=== PATIENT | female | born 1975 | race Caucasian/White ===

== ENCOUNTER 2016-11-28 12:48 | Emergency (ER) | payer BC ==
[~2016-11-28] VITALS: Ht 160 cm; Wt 63.5 kg
[2016-11-28 13:53] LABS: POTASSIUM ISTAT 2.9 mmol/L (3.5-5.0)
[2016-11-28 13:59] LABS: BASO # 0.1 x10^3/uL (0.0-0.2); BASO % 1 % (0-3); EOS % 1 % (0-3); HEMOGLOBIN 17.3 g/dL (12.0-15.5); LYMPH # 2.5 x10^3/uL (1.0-4.8); LYMPH % 34 % (24-48); MEAN CORPUSCULAR HEMOGLOBIN 32 pg (25-35); MEAN CORPUSCULAR HGB CONC 35 g/dL (31-37); MEAN CORPUSCULAR VOLUME 93 fL (79-100); MONO % 10 % (0-9); NEUT % 55 % (31-73); PLATELET COUNT 249 x10^3/uL (140-400); RED CELL DISTRIBUTION WIDTH 13.4 % (11.5-14.5); WHITE BLOOD COUNT 7.4 x10^3/uL (4.0-11.0)
[2016-11-28] MEDS ORDERED: PANTOPRAZOLE IV PUSH 40 MG VIAL. IVP ONE (14:00)
[2016-11-28] MEDS ORDERED: KETOROLAC TROMETHAMINE 30 MG/ML INJ. IV ONE (14:00)
[2016-11-28] MEDS ORDERED: ONDANSETRON PF 4 MG/2 ML VIAL. IV ONE (14:00)
[2016-11-28] MEDS ORDERED: fentaNYL PF VIAL 100 MCG/2 ML VIAL IV ONE (14:00)
[2016-11-28] MEDS ORDERED: IV NORMAL SALINE 1000ML BAG 1,000 ML IV ONE ×2 (14:00)
[2016-11-28 14:06] LABS: CALCIUM 9.2 mg/dL (8.5-10.1); CREATININE 0.8 mg/dL (0.6-1.0); GFR 79.9; POTASSIUM 3.1 mmol/L (3.5-5.1)
[2016-11-28 14:12] LABS: ALBUMIN 3.9 g/dL (3.4-5.0); TOTAL BILIRUBIN 0.5 mg/dL (0.2-1.0); TOTAL PROTEIN 7.8 g/dL (6.4-8.2)
[2016-11-28] MEDS ORDERED: POTASSIUM CHLORIDE 20 MEQ TABLET.ER. PO ONE (14:45)
[2016-11-28] MEDS ORDERED: ONDA4TAB10 SL (14:56)
--- NOTE | 2016-11-28 14:57 | PHYS DOC ---
Past Medical History Past Medical History: No Pertinent History Past Surgical History: Tubal ligation Alcohol Use: Rarely Drug Use: None Adult General Chief Complaint Chief Complaint: NAUSEA/VOMITING/DIARRHA HPI HPI Patient is a 41 year old [female presenting to the emergency department for evaluation of nausea vomiting diarrhea that started 2 days ago and has persisted. Emesis is nonbloody nonbilious as well as diarrhea. Both have slowed down and she has not been able to keep anything down for the past 2 days and does not have anything in her GI tract. She had some crampy abdominal pain yesterday however no pain currently. She had bilateral tubal ligation. Review of Systems Review of Systems Constitutional: Denies fever or chills [] Eyes: Denies change in visual acuity, redness, or eye pain [] HENT: Denies nasal congestion or sore throat [] Respiratory: Denies cough or shortness of breath [] Cardiovascular: No CP GI: + abdominal pain, nausea, vomiting, diarrhea [] : Denies dysuria or hematuria [] Musculoskeletal: Denies back pain or joint pain [] Integument: Denies rash or skin lesions [] Neurologic: Denies headache, focal weakness or sensory changes [] Current Medications Current Medications Current Medications Medications (Trade) Dose Ordered Sig/Jorge A Start Time Stop Time Status Last Admin Dose Admin Fentanyl Citrate 75 mcg 75 mcg 1X ONCE 11/28/16 14:00 11/28/16 14:01 DC 11/28/16 14:09 75 MCG Ketorolac Tromethamine (Toradol) 30 mg 1X ONCE 11/28/16 14:00 11/28/16 14:01 DC 11/28/16 14:10 30 MG Ondansetron HCl (Zofran) 8 mg 1X ONCE 11/28/16 14:00 11/28/16 14:01 DC 11/28/16 14:09 8 MG Pantoprazole Sodium (Protonix Vial) 40 mg 1X ONCE 11/28/16 14:00 11/28/16 14:01 DC 11/28/16 14:08 40 MG Potassium Chloride (Klor-Con) 40 meq 1X ONCE 11/28/16 14:45 11/28/16 14:46 DC Sodium Chloride (Iv Sodium Chloride 0.9% 1000ml Bag) 1,000 ml @ 1,000 mls/hr 1X ONCE 11/28/16 14:00 11/28/16 14:59 Allergies Allergies Allergies Coded Allergies Type Severity Reaction Last Updated Verified sulfamethoxazole Allergy Intermediate 11/28/16 No trimethoprim Allergy Intermediate 11/28/16 No Physical Exam Physical Exam Constitutional: Well developed, well nourished, no acute distress, non-toxic appearance. [] HENT: Normocephalic, atraumatic, bilateral external ears normal, oropharynx moist, no oral exudates, nose normal. [] Eyes: PERRLA, EOMI, conjunctiva normal, no discharge. [] Neck: Normal range of motion, no tenderness, supple, no stridor. [] Cardiovascular:Heart rate regular rhythm, no murmur [] Lungs & Thorax: Bilateral breath sounds clear to auscultation [] Abdomen: Bowel sounds normal, soft, no tenderness, no masses, no pulsatile masses. [] Skin: Warm, dry, no erythema, no rash. [] Back: No tenderness, no CVA tenderness. [] Extremities: No tenderness, no cyanosis, no clubbing, ROM intact, no edema. [] Neurologic: Alert and oriented X 3, normal motor function, normal sensory function, no focal deficits noted. [] Current Patient Data Vital Signs Vital Signs Date Time Temp Pulse Resp B/P Pulse Ox O2 Delivery O2 Flow Rate FiO2 11/28/16 13:07 98.1 96 20 127/50 97 Room Air 98.1 Lab Values Laboratory Tests Test 11/28/16 12:55 11/28/16 13:45 11/28/16 13:50 POC Urine HCG, Qualitative Hcg negative (Negative) White Blood Count 7.4x10^3/uL (4.0-11.0) Red Blood Count 5.40x10^6/uL (3.50-5.40) Hemoglobin 17.3g/dL (12.0-15.5) H Hematocrit 50.0% (36.0-47.0) H Mean Corpuscular Volume 93fL (79-100) Mean Corpuscular Hemoglobin 32pg (25-35) Mean Corpuscular Hemoglobin Concent 35g/dL (31-37) Red Cell Distribution Width 13.4% (11.5-14.5) Platelet Count 249x10^3/uL (140-400) Neutrophils (%) (Auto) 55% (31-73) Lymphocytes (%) (Auto) 34% (24-48) Monocytes (%) (Auto) 10% (0-9) H Eosinophils (%) (Auto) 1% (0-3) Basophils (%) (Auto) 1% (0-3) Neutrophils # (Auto) 4.0x10^3uL (1.8-7.7) Lymphocytes # (Auto) 2.5x10^3/uL (1.0-4.8) Monocytes # (Auto) 0.7x10^3/uL (0.0-1.1) Eosinophils # (Auto) 0.1x10^3/uL (0.0-0.7) Basophils # (Auto) 0.1x10^3/uL (0.0-0.2) Sodium Level 137mmol/L (136-145) Potassium Level 3.1mmol/L (3.5-5.1) L Chloride Level 100mmol/L (98-107) Carbon Dioxide Level 26mmol/L (21-32) Anion Gap 11 (6-14) 20mmol/L (6-14) H Blood Urea Nitrogen 6mg/dL (7-20) L Creatinine 0.8mg/dL (0.6-1.0) Estimated GFR (Cockcroft-Gault) 79.9 BUN/Creatinine Ratio 8 (6-20) Glucose Level 124mg/dL (70-99) H 120mg/dL (70-99) H Calcium Level 9.2mg/dL (8.5-10.1) Total Bilirubin 0.5mg/dL (0.2-1.0) Aspartate Amino Transferase (AST) 26U/L (15-37) Alanine Aminotransferase (ALT) 42U/L (14-59) Alkaline Phosphatase 94U/L (46-116) Total Protein 7.8g/dL (6.4-8.2) Albumin 3.9g/dL (3.4-5.0) Albumin/Globulin Ratio 1.0 (1.0-1.7) Lipase 77U/L (73-393) POC Hemoglobin 17.3g/dL (12-15) H POC Hematocrit 51% (36-40) H POC Sodium 139mmol/L (135-145) POC Potassium 2.9mmol/L (3.5-5.0) L POC Chloride 101mmol/L (98-110) POC Total CO2 21mmol/L (23-32) L POC Blood Urea Nitrogen 4mg/dL (8-26) L POC Creatinine 0.6mg/dL (0.5-1.4) POC Ionized Calcium (Tunde) 1.05mmol/L (1.13-1.32) L Laboratory Tests 11/28/16 13:45 Laboratory Tests 11/28/16 13:45 11/28/16 13:50 EKG EKG [] Radiology/Procedures Radiology/Procedures [] Course & Med Decision Making Course & Med Decision Making Patient given 2 L of fluid in addition to Zofran and some pain medications and now her pain and nausea are gone and she is able to tolerate fluids by mouth with no difficulty. Her friend told to drink Gatorade and come back to the ER sooner with any worsening pain fever vomiting or additional concerns. Dragon Disclaimer Dragon Disclaimer This electronic medical record was generated, in whole or in part, using a voice recognition dictation system. Departure Departure Impression: Primary Impression: Nausea & vomiting Additional Impressions: Diarrhea Hypokalemia Disposition: HOME, SELF-CARE Condition: GOOD Referrals: NO PCP (PCP) Patient Instructions: Viral Gastroenteritis Scripts Ondansetron (Zofran Odt)4 Mg Tab.rapdis1 Tab SL Q8HRS #15 TAB Prov:ERVIN HARDING DO 11/28/16 Problem Qualifiers Primary Impression: Nausea & vomiting Vomiting Intractability: unspecified ERVIN HARDING DO Nov 28, 2016 14:57
[2016-11-28 14:58] VITALS: BP 125/64
[2016-11-28] MEDS ORDERED: PROCHLORPERAZINE 10 MG/2 ML VIAL. IV ONE (16:45)
== END 2016-11-28 15:17 | disposition home or self-care (01) ==
LOC: ER 12:48
DX: R11.2 Nausea with vomiting, unspecified (principal); R19.7 Diarrhea, unspecified; E87.6 Hypokalemia; Z98.51 Tubal ligation status; Z88.2 Allergy status to sulfonamides; Z88.8 Allergy status to other drugs, medicaments and biological substances
CPT/HCPCS: 36415; 80047; 80053; 81025; 83690; 85027; 96361; 96374; 96375; 99285; C9113; J0780; J1885; J2405; J3010; J7030